=== PATIENT | male | born 1975 | race Caucasian/White ===

== ENCOUNTER 2021-10-20 01:11 | Day surgery (SDC) | payer BC, SELFPAY ==
[2021-10-12 12:59] VITALS: BMI 25.1
--- NOTE | 2021-10-12 13:04 | PC.NURSE ---
Report to the Outpatient Waiting Room, entrance under the green pavilion located off [facility], at time _1000 on date _10/20/21 . OR Time: _1200 . - You and your visitor will be asked a series of questions to screen for COVID 19 for your protection. - Only one visitor is allowed at this time. - The patient visitor is requested to leave or wait in car when not with patient. - A mask is required within the hospital. Patients may have clear liquids (water, carbonated beverages, clear teas, apple juice) until 3 hours prior to surgery with a maximum of 20 ounces. - No food from midnight until time of surgery - Infants may have breast milk until 4 hours before surgery, formula 6 hours prior to surgery. - Children will be allowed to drink immediately following surgery. If applicable, please bring a bottle or sippy cup to assist with drinking. Juice, water, soda, and popsicles are readily available. For infants on formula, please bring formula the day of surgery. Pacifiers are allowed. Take the following medications with a SIP of water the morning of surgery: CITALOPRAM. LAMOTRIGINE Medications to discontinue per physician N/A Date to take last dose Please no make-up, nail estonian, hairspray, perfume, deodorant, or body powder the day of surgery. No jewelry (including any body piercings) or valuables the day of surgery, leave them at home. Please take a shower or bath the night before, or the morning of, surgery with an antibacterial soap. Wear comfortable, loose fitting clothing. Children are encouraged to wear pajamas. - Jewelry must be removed prior to entering the operating room. Rings and piercings that are not removed may be cut off. - The hospital will not accept responsibility for valuables. - Please leave all valuables, including medications, at home the day of surgery. If you are going home after surgery, a licensed cart driver must drive you home. - NO public transportation without another adult. - We recommend that an adult stay with you for 24 hours following discharge. - We also recommend that you do not drive, make important decision, drink alcoholic beverages, or take any drugs that were not prescribed by your health care provider for at least 24 hours after your discharge time. For Pediatric surgeries, we recommend two adults accompany the child home (only one inside the building at this time). Follow any additional instructions given to you from your surgeon. If you or anyone in your household have experienced Covid symptoms in the past week, please notify your surgeon or the nurse liaison at the phone number below for possible testing. Telephone instructions given to and asked if any additional questions and then verbalized understanding. Patient advised to call surgeon office or pre surgery nurse liaison [phone] if any additional questions.
[2021-10-20] VITALS (8 sets, daily range): BP systolic 119–153; BP diastolic 65–89; PULSE 63–79; RESP 12–20; TEMP 36.4–37.3; O2SAT 100; BMI 25.7
[2021-10-20] MEDS: LACTATED RINGERS 1,000 ML 30 ML IV CONT ×2 (10:46→15:06)
[2021-10-20] MEDS: KETOROLAC 15 MG/ML VIAL (*BKC) IV PUSH (10:47)
[2021-10-20] MEDS: ACETAMINOPHEN 500 MG TABLET 1000 MG PO (10:47)
--- NOTE | 2021-10-20 11:12 | WPDHPUPDATE1 ---
History and Physical Update Update Date/Time: 10/20/21 11:12 History and Physical has been reviewed, including an updated exam of the patient. There are NO changes in the patient's condition. Risks, benefits, and alternatives have been discussed and questions answered. Patient agrees to proceed with procedure.
--- NOTE | 2021-10-20 12:12 | WPDANESEPPF ---
Anes - Initial Pre Proc Eval Procedure: Operation Date: 10/20/21 12:00 Proposed Procedures p Bilateral Inguinal Hernia Repair - Sae Collier MD Date/Time: 10/20/21 12:12 Surgeon: Sae Collier MD Pre Op Diagnosis: Charlie Ing Hernia Patient Data Age: 45 Gender: M Height: 1.83 m Weight: 86 kg Last Vital Signs Temp 99.1 F 10/20/21 10:24 Pulse 72 10/20/21 10:24 Resp 20 10/20/21 10:24 BP 135/86 10/20/21 10:24 Pulse Ox 100 10/20/21 10:24 O2 Del Method Room Air 10/20/21 10:24 Allergies Allergy/AdvReac Type Severity Reaction Status Date / Time No Known Allergies Allergy Verified 10/20/21 10:14 Home Medications Medication Instructions Recorded Confirmed Type citalopram 20 mg tablet 40 mg PO DAILY 10/07/21 10/20/21 History lamotrigine 100 mg tablet 200 mg PO DAILY 10/07/21 10/20/21 History Patient hx anesthesia problems: none Family hx anesthesia problems: none Results Review: All pre-operative results and documents have been reviewed as part of the pre-operative evaluation. [facility] Surgical History Surgical History H/O elbow surgery right elbow History of appendectomy Family History Family History Mother COVID PATIENTS MOTHER PASSED FROM [place]. 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 Informed Consent: The patient's anesthetic plan and its attendant risks and benefits were discussed with the patient/family/POA. Questions were solicited and answers provided to the satisfaction of the patient/family/POA.
[2021-10-20] MEDS: ceFAZolin 2 GM/D5W 50 ML 2 GM/50 ML BAG IVPB (12:36)
--- NOTE | 2021-10-20 12:53 | SUR.PREOP ---
1200; PT REMOVED ALL BODY HAIR PRIOR TO ARRIVAL IN PREOP TODAY.
[2021-10-20] MEDS: LIDO 1%/EPINEPHRINE/PF 1:200,000 30 ML VIAL 60 ML XX (13:10)
--- NOTE | 2021-10-20 15:05 | W.PM.PROC2 ---
Procedure Note - Detailed Date of Procedure 10/20/21 Pre-op Diagnosis Charlie Ing Hernia Post-op Diagnosis Same Procedure Performed Repair bilateral inguinal hernias, left side with PerFix plug and patch, right side with no mesh Surgeon Sae Collier MD [employer] Nicolasa Iyer [facility] Anesthesia General and Local (1% lidocaine with epinephrine) Indications Patient has been having a bulge with pain in the right inguinal region. He was seen in the office and found to have a right inguinal hernia was fairly good-sized. He was also found to have an incidental left inguinal hernia. He is taken to surgery now for bilateral inguinal hernia repairs. Findings Right side showed actually 3 hernias. There was an indirect hernia and 2 direct hernias. The larger of the direct hernias was more lateral and there was a smaller more medial direct hernia defect as well. This side had floor reconstruction with Bassini repair. The left side was smaller and had only 1 direct hernia. This was repaired with the large PerFix plug and patch technique. Both sides had Xaracoll placed. Description of Procedure Patient was taken to surgery and induced into anesthesia. Both groins genitalia and lower abdomen were prepped and draped. We turned our attention 1st to the larger hernia which was on the right side. The 2 proposed incisions were marked on the skin such that they were mirror images of 1 another. We started with the right side and infiltrated local anesthetic in the area the proposed incision and in the deeper subcutaneous tissues. Incision was made dissection was carried down through the subcutaneous. Crossing veins were cauterized and divided. Continued the dissection down to the external oblique aponeurosis. The aponeurosis was exposed as was the external ring. I then infiltrated additional local deep to the aponeurosis in the area of the spermatic cord and inguinal canal contents. The aponeurosis was opened laterally extended medially through the external ring. The leaves of the aponeurosis were then dissected free of the spermatic cord and inguinal canal contents. The ilioinguinal nerve was left attached to the cord and was carefully avoided during the surgery. We mobilized the cord medially on a [place] drain. I then mobilized the cord back to the internal ring. During this process the direct hernia was found. I dissected off the spermatic cord. I then looked in the spermatic cord for an indirect hernia. Dissecting in the anteromedial aspect of the cord an indirect hernia was found. I dissected this free from the cord and dissected it back to a high dissection. I then dissected the larger direct hernia and found that there was also a smaller direct hernia that was more medial. Both of these were dissected and each had a separate defect in the direct space. The more medial in smaller direct hernia had a very small defect and I simply amputated the hernia sac at the neck of the hernia. The larger defect was treated more traditionally by dividing the transversalis fascia circumferentially just above the neck of the hernia this allowed me to dunked the hernia defect into the retroperitoneum. The indirect hernia was twisted on itself. I then suture ligated the hernia sac for a high ligation. This was done with 3-0 Vicryl. I then amputated the hernia sac and passed it off as a specimen. The stump of the hernia sac retracted into the retroperitoneum. Since there were 3 defects, I opted for the inguinal canal floor reconstruction with a Bassini repair. Starting medially, 0 Ethibond suture were placed in interrupted fashion. The 1st suture sutured the pubic tubercle to the transversalis fascia. Subsequent interrupted sutures sutured the reflection of the inguinal ligament to the transversalis fascia. These sutures were continued to be placed in interrupted fashion until the internal ring was reformed such that it would barely admit the tip of a clamp. All look
== END 2021-10-20 17:05 | disposition home or self-care (01) ==
PROVIDERS: PCP Physician Assistant; Visit Provider Surgery
PROC: (CPT 49505; principal; 2021-10-20 12:00)
DX: K40.20 Bilateral inguinal hernia, without obstruction or gangrene, not specified as recurrent (principal); Z87.891 Personal history of nicotine dependence; F12.90 Cannabis use, unspecified, uncomplicated
CPT/HCPCS: 49505; 88302; A9270; C1781; J0690; J1885; J2250; J2704; J3010; J7120